=== PATIENT | male | born 1960 ===

== ENCOUNTER 2023-07-28 22:14 | Emergency (ER) | payer OTHER ==
[~2023-07-28] VITALS: Ht 172.7 cm; Wt 74.8 kg
[2023-07-28] MEDS ORDERED: LORA0.5T48 PO (23:32)
[2023-07-28] MEDS ORDERED: CHLO25CA22 PO (23:32)
[2023-07-29 00:20] LABS: BASOPHILS % (AUTO) 0.7 % (0.0-2.0); EOSINOPHILS # (AUTO) 0.1 K/uL (0.0-0.7); HEMATOCRIT 42.4 % (36.7-47.1); HEMOGLOBIN 14.6 g/dL (12.5-16.3); LYMPHOCYTES # (AUTO) 1.3 K/uL (0.8-4.8); LYMPHOCYTES % (AUTO) 22.9 % (20.5-51.5); MEAN CORPUSCULAR HEMOGLOBIN 32.3 uug (23.8-33.4); MEAN CORPUSCULAR HGB CONC 34 g/dL (32.5-36.3); MEAN CORPUSCULAR VOLUME 93.9 fL (73.0-96.2); MONOCYTES # (AUTO) 0.5 K/uL (0.1-1.30); MONOCYTES % (AUTO) 8.7 % (0.0-11.0); NEUTROPHILS # (AUTO) 3.8 K/uL (1.8-8.9); NEUTROPHILS % (AUTO) 65.7 % (38.5-71.5); PLATELET COUNT (AUTO) 146 K/uL (152-348); RED BLOOD CELL COUNT(AUTO) 4.51 MIL/uL (4.06-5.63); WHITE BLOOD COUNT (AUTO) 5.8 K/uL (3.6-10.2)
[2023-07-29 00:21] LABS: DIFFERENTIAL COMMENT 1
[2023-07-29 00:31] LABS: CALCIUM 8.6 mg/dL (8.5-10.1); CREATININE 0.8 mg/dL (0.6-1.3)
[2023-07-29 00:36] LABS: ALBUMIN 3.4 g/dL (3.4-5.0); BILIRUBIN,TOTAL 0.3 mg/dL (0.2-1.0); MAGNESIUM 1.9 mg/dL (1.8-2.4); TOTAL PROTEIN, SERUM 6.6 g/dL (6.4-8.2)
[2023-07-29] MEDS ORDERED: GABAPENTIN 300 MG CAPSULE ONE (00:44)
[2023-07-29] MEDS ORDERED: GABAPENTIN 300 MG CAPSULE PO ONE (00:45)
[2023-07-29] MEDS ORDERED: METF-440 PO (01:22)
[2023-07-29] MEDS ORDERED: GABA-536 PO (01:33)
[2023-07-29] MEDS ORDERED: THIA100T13 PO (01:33)
[2023-07-29] MEDS ORDERED: NALT50TA PO (01:36)
[2023-07-29 01:48] VITALS: BP 110/66; TEMP 98.2; O2SAT 98
== END 2023-07-29 01:48 | disposition home or self-care (01) ==
LOC: ER 22:21
DX: F10.239 Alcohol dependence with withdrawal, unspecified (principal); E11.65 Type 2 diabetes mellitus with hyperglycemia; R74.01 Elevation of levels of liver transaminase levels; E78.5 Hyperlipidemia, unspecified; E11.9 Type 2 diabetes mellitus without complications; F17.200 Nicotine dependence, unspecified, uncomplicated; Z79.899 Other long term (current) drug therapy
CPT/HCPCS: 36415; 83690; 83735; 85025; 85610; A4606; A4663